=== PATIENT | male | born 1985 | race Caucasian/White ===

== ENCOUNTER 2021-05-25 12:58 | Emergency (ER) | payer SELFPAY ==
[2021-05-25] MEDS ORDERED: BUPIVACAINE 0.5% PF 10 ML VIAL ONE (13:39)
[2021-05-25] MEDS ORDERED: HYDROCODONE/APAP 5/325 MG TAB ONE (13:39)
[2021-05-25] MEDS ORDERED: TETANUS & DIPHTHERIA TOX,ADULT 0.5 ML VIAL ONE (13:39)
[2021-05-25] MEDS ORDERED: LIDOCAINE 1% MPF 30 ML VIAL ONE (13:39)
[2021-05-25] MEDS ORDERED: ACETAMINOPHEN 500 MG TAB ONE (13:52)
[2021-05-25] MEDS ORDERED: IBUPROFEN 400 MG TAB ONE (13:52)
--- NOTE | 2021-05-25 14:42 | RAD REPORT ---
EXAM DESCRIPTION: RAD - Hand Right 3 View - 05/25/2021 1:57 pm CLINICAL HISTORY: crush injury to index finger COMPARISON: No comparisons FINDINGS: Soft tissue swelling with focal soft tissue injury seen affects the distal palmar aspect o f the second finger. Subtle lucency seen in the distal aspect of the middle phalanx of the second fin gab is likely nondisplaced fracture.
[2021-05-25] MEDS ORDERED: WATER FOR INJ,STERILE 10 ML ONE (15:18)
[2021-05-25] MEDS ORDERED: CEFAZOLIN SODIUM 1 GM/VIAL ONE (15:18)
--- NOTE | 2021-05-25 15:55 | EDPHYS ---
Physician Documentation [facility] Name: Del Garcia II Age: 36 yrs Sex: Male : 1985 Arrival Date: 05/25/2021 Time: 13:11 Bed 11 Private MD: ED Physician Josemanuel Young HPI: 05/25 13:30 This 36 yrs old Male presents to ER via EMS with complaints of Finger Injury. cp 13:30 The patient or guardian reports crush injury and laceration. The complaints affect the cp palmar aspect of middle phalanx of right index finger. 13:30 Onset: The symptoms/episode began/occurred today. Associated signs and symptoms: cp Pertinent negatives: cyanosis distally, decreased sensation distally. Patient reports crush type injury to right index finger by heavy machinery occurred at work today. Historical: - Allergies: 13:13 Latex, Natural Rubber; ww 13:13 Ultram; ww - Home Meds: 13:13 None [Active]; ww - PMHx: 13:13 None; ww - PSHx: 13:13 None; ww - Immunization history:: Last tetanus immunization: unknown, believes greater than 8 years. - Social history:: Smoking status: Patient denies any tobacco usage or history of. ROS: 13:33 MS/extremity: Positive for laceration, pain, of the palmar aspect of middle phalanx of cp right index finger, crush injury. 13:33 Constitutional: Negative for fever. cp 13:33 All other systems are negative. Exam: 13:37 Constitutional: The patient appears in no acute distress, alert, awake, well developed, cp well nourished, uncomfortable. 13:37 Head/Face: Normocephalic, atraumatic. cp 13:37 Cardiovascular: Rate: normal. 13:37 Respiratory: the patient does not display signs of respiratory distress, Respirations: normal. 13:37 Musculoskeletal/extremity: Extremities: grossly normal except: noted in the right index finger: pain, swelling, tenderness, laceration to schuster side of middle phalanx, Tendon exam: specific tendon testing normal through active and passive range of motion 2 point discrimination intact distal phalanx right index finger. Vital Signs: 13:11 BP 138 / 91; Pulse 99; Resp 18; Temp 97.9(O); Pulse Ox 99% on R/A; Weight 83.91 kg; ww Height 5 ft. 11 in. (180.34 cm); Pain 5/10; 13:11 Body Mass Index 25.80 (83.91 kg, 180.34 cm) ww Laceration: 16:00 Wound Repair of 3cm ( 1.2in ) subcutaneous laceration to palmar aspect of middle cp phalanx of right index finger. Irregularly shaped.. Distal neuro/vascular/tendon intact. Anesthesia: Wound infiltrated with 4 mls of Lido/Marcaine. Wound prep: Moderate cleansing by me, Wound irrigation by me. Skin closed with 6 4-0 Prolene using interrupted sutures and sterile technique. Dressed with Bacitracin, 4x4's. Patient tolerated well. MDM: 13:21 Patient medically screened. cp 15:00 Physician consultation: Manolo Arriola MD was called at 15:00, was contacted at 15:00, regarding patient's condition, recommends patient be taken to OR for wash out and closure. 15:06 Refusal of service: The patient/guardian displays adequate decision making capability cp and despite a detailed discussion of alternatives, benefits, risks, and consequences refuses: for surgical wash out. 15:50 ED course: I spoke with Dr. Martinez, occupational physician for patient's employer cp after approval from patient, to inform him and that patient decided against washout in the OR from Dr. Ana shah injuries and request closure of wound in the emergency room. I will discharge patient with oral antibiotics and back to work in which he can follow-up with company occupational physician for reevaluation. 15:52 Data reviewed: vital signs, nurses notes, radiologic studies, plain films. cp 15:52 Differential diagnosis: dislocation, open fracture, closed fracture, tendon injury. cp Response to treatment: the patient's symptoms have markedly improved after treatment, and as a result, I will discharge patient. 05/25 13:19 Order name: XRAY Hand RIGHT 3 View; Complete Time: 14:54 cp 05/25 13:19 Order name: Dressing - Wound; Complete Time: 13:43 cp 05/25 13:19 Order name: Gloves, Sterile; Complete Time: 13:42 cp 05/25 13:19 Order name: Setup Suture Tray; Complete Time: 13:42 cp 05/25 14:22 Order name: NPO; Complete Time: 14:24 cp 05/25 14:22 Order name: Wound Care: wound irrigation; Complete Time: 14:58 cp 05/25 15:45 Order name: Wound dressing; Complete Time: 16:23 cp 05/25 15:45 Order name: Finger Splint; Complete Time: 16:23 cp Administered Medications: 13:48 Not Given (Physician Discretion): HYDROcodone-acetaminophen 5 mg-325 mg 1 tabs Feeding cp Tube once; RASS on ADMIN: Combtv4, Very Agttd3, Agttd2, Rstlss1, AlertClm0, Drwsy-1, Lt Sdtn-2, Mod Sdtn-3, Dp Sdtn-4, UnArsble-5 13:55 Drug: Tetanus-Diphtheria Toxoid Adult 0.5 ml {[employer] Worker: [employer]. Exp: ww 09/11/2022. Lot #: [id number]. } Route: IM; Site: left deltoid; 13:55 Not Given (Patient Refused): Tylenol 1000 mg PO once ww 13:55 Drug: Ibuprofen 800 mg Route: PO; ww 16:00 Drug: Ancef (cefazolin) 1 grams Route: IM; Site: right gluteus; ww Disposition: 16:05 Chart complete. cp 18:24 Co-signature as Attending Physician, Josemanuel Young MD I agree with the assessment and rn plan of care. Attestation: The patient's history, exam findings, diagnostics, and a summary of any interventions or procedures was reviewed in detail with Corby GUTIÉRREZ. Disposition Summary: 05/25/21 15:54 Discharge Ordered Location: Home cp Problem: new cp Symptoms: have improved cp Condition: Stable cp Diagnosis - Nondisplaced fracture of middle phalanx of right index finger, initial encounter cp for open fracture Followup: cp - With: Private Physician - When: 1 - 2 days - Reason: Wound Recheck Discharge Instructions: - Discharge Summary Sheet cp - Finger Fracture, Adult cp - Laceration Care, Adult cp Forms: - Medication Reconciliation Form cp - Thank You Letter cp - Antibiotic Education cp - Prescription Opioid Use cp Prescriptions: - Augmentin 875-125 mg Oral Tablet - take 1 tablet by ORAL route every 12 hours for 10 days; 20 tablet; Refills: 0, cp Product Selection Permitted - Ibuprofen 800 mg Oral Tablet - take 1 tablet by ORAL route every 8 hours As needed take with food; 30 tablet; cp Refills: 0, Product Selection Permitted Signatures: Dispatcher [employer] Josemanuel Deleon MD MD rn Page, Corey, PA PA cp Wood, Whitney, RN RN
--- NOTE | 2021-05-25 15:55 | ER ---
Nurse's Notes [facility] Name: Del Garcia II Age: 36 yrs Sex: Male : 1985 Arrival Date: 05/25/2021 Time: 13:11 Bed 11 Private MD: Diagnosis: Nondisplaced fracture of middle phalanx of right index finger, initial encounter for open fracture Presentation: 05/25 13:11 Chief complaint: Patient states: Right index finger laceration. At work on a [employer] ww and PVC pipe slipped and mashed his finger. Coronavirus screen: Vaccine status: Patient reports being unvaccinated. Client denies travel out of the [place] in the last 14 days. Ebola Screen: Patient negative for fever greater than or equal to 101.5 degrees Fahrenheit, and additional compatible Ebola Virus Disease symptoms Patient denies exposure to infectious person. Initial Sepsis Screen: Does the patient meet any 2 criteria? No. Patient's initial sepsis screen is negative. Does the patient have a suspected source of infection? No. Patient's initial sepsis screen is negative. Risk Assessment: Do you want to hurt yourself or someone else? Patient reports no desire to harm self or others. Onset of symptoms was May 25, 2021. 13:11 Method Of Arrival: EMS: [facility] 13:11 Acuity: IDANIA 4 ww Triage Assessment: 13:13 General: Appears in no apparent distress. Behavior is calm, cooperative. Pain: ww Complains of pain in dorsal aspect of middle phalanx of right index finger and palmar aspect of middle phalanx of right index finger. EENT: No signs and/or symptoms were reported regarding the EENT system. Neuro: Level of Consciousness is awake, alert, obeys commands, Oriented to person, place, time, situation, Speech is normal. Cardiovascular: Patient's skin is warm and dry. Respiratory: Airway is patent Respiratory effort is even, unlabored, Respiratory pattern is regular, symmetrical. GI: No signs and/or symptoms were reported involving the gastrointestinal system. : No signs and/or symptoms were reported regarding the genitourinary system. Derm: Skin is healthy with good turgor, Skin is pink, warm \T\ dry. Musculoskeletal: Circulation, motion, and sensation intact. Injury Description: Laceration sustained to dorsal aspect of middle phalanx of right index finger and palmar aspect of middle phalanx of right index finger is jagged. Historical: - Allergies: 13:13 Latex, Natural Rubber; ww 13:13 Ultram; ww - Home Meds: 13:13 None [Active]; ww - PMHx: 13:13 None; ww - PSHx: 13:13 None; ww - Immunization history:: Last tetanus immunization: unknown, believes greater than 8 years. - Social history:: Smoking status: Patient denies any tobacco usage or history of. Screenin:15 Abuse screen: Denies threats or abuse. Denies injuries from another. Nutritional ww screening: No deficits noted. Tuberculosis screening: No symptoms or risk factors identified. Fall Risk None identified. Assessment: 13:15 Reassessment: See Triage assessment. Removed dressing applied by patients co-workers ww and cleaned wound with saline. 14:30 Reassessment: Patient appears in no apparent distress at this time. No changes from ww previously documented assessment. Patient and/or family updated on plan of care and expected duration. Pain level reassessed. Patient is alert, oriented x 3, equal unlabored respirations, skin warm/dry/pink. 16:00 Reassessment: Patient appears in no apparent distress at this time. No changes from ww previously documented assessment. Patient and/or family updated on plan of care and expected duration. Pain level reassessed. Patient is alert, oriented x 3, equal unlabored respirations, skin warm/dry/pink. Vital Signs: 13:11 BP 138 / 91; Pulse 99; Resp 18; Temp 97.9(O); Pulse Ox 99% on R/A; Weight 83.91 kg; ww Height 5 ft. 11 in. (180.34 cm); Pain 5/10; 13:11 Body Mass Index 25.80 (83.91 kg, 180.34 cm) ww ED Course: 13:11 Patient arrived in ED. ss 13:11 Bouchra Feliz, RN is Primary Nurse. ww 13:13 Triage completed. ww 13:13 Arm band placed on left wrist. ww 13:15 Patient has correct armband on for positive identification. Bed in low position. Call ww light in reach. Side rails up X 1. Adult w/ patient. 13:17 Corby Majano PA is PHCP. cp 13:17 Josemanuel Young MD is Attending Physician. cp 13:57 XRAY Hand RIGHT 3 View In Process Unspecified. EDMS 16:24 No provider procedures requiring assistance completed. Patient did not have IV access ww during this emergency room visit. 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 Exp: ww 09/11/2022. Lot #: [id number]. } Route: IM; Site: left deltoid; 13:55 Not Given (Patient Refused): Tylenol 1000 mg PO once ww 13:55 Drug: Ibuprofen 800 mg Route: PO; ww 16:00 Drug: Ancef (cefazolin) 1 grams Route: IM; Site: right gluteus; ww Outcome: 15:54 Discharge ordered by MD. cp 16:24 Discharged to home ambulatory, with family. ww 16:24 Condition: stable 16:24 Discharge instructions given to patient, significant other, Instructed on discharge instructions, follow up and referral plans. medication usage, benefits of quitting smoking, safety practices, wound care, Demonstrated understanding of instructions, follow-up care, medications, wound care, Prescriptions given X 2. 16:25 Patient left the ED. ww Signatures: Dispatcher [employer] EDNM Gena Avilez, Corby Russell RN, PA PA cp Wood, Whitney RN RN chaka
[2021-05-25 17:12] VITALS: BP 138/91; TEMP 97.9; O2SAT 99
== END 2021-05-25 16:25 | disposition home or self-care (01) ==
LOC: ER 12:58
PROC: 0JQJ0ZZ Repair Right Hand Subcutaneous Tissue and Fascia, Open Approach (ICD-10-PCS; principal; 2021-05-25)
DX: S62.650B Nondisplaced fracture of middle phalanx of right index finger, initial encounter for open fracture (principal); W31.9XXA Contact with unspecified machinery, initial encounter; Y92.89 Other specified places as the place of occurrence of the external cause; Y99.8 Other external cause status; Z23 Encounter for immunization; Z88.8 Allergy status to other drugs, medicaments and biological substances; Z91.040 Latex allergy status; Z91.048 Other nonmedicinal substance allergy status
CPT/HCPCS: 90471; 90714; 96372; 99284; J0690